=== PATIENT | male | born 1950 | race Caucasian/White ===

== ENCOUNTER 2022-05-31 13:10 | Inpatient (IN) | payer MEDICARE ==
[~2022-05-31 13:10] MED LIST: Iopamidol-370 76% 500 ML MDV (1 ML CHARGE) ONE
[2022-05-31] MEDS ORDERED: Ondansetron PF 4 MG/2 ML Vial ONE (15:37)
[2022-05-31] MEDS ORDERED: Morphine 4 MG/ML VIAL ONE (15:37)
[2022-05-31 16:28] LABS: Bilirubin Negative (Negative); Blood, Urine 2+ (Negative); Clarity Clear (Clear); Glucose, Urine (Dipstick) Normal (Negative); Ketone, Urine Greater than 150 mg/dL (Negative); Leukocyte 250 Leu/uL (Negative); Nitrite Negative (Negative); Protein, Urine (Dipstick) 70 mg/dL (Neg-Trace); Squamous Epithelial None Seen HPF (0-3); WBC/HPF 21-50 HPF (0-3); pH, Urine 5.5 (5.0-9.0)
[2022-05-31 16:31] LABS: Bacteria/HPF Rare-Few HPF (None Seen)
[2022-05-31 16:35] LABS: #Lymphocytes 0.7 thou/uL (1.20-3.40); #Monocytes 0.5 thou/uL (0.11-0.59); #Neutrophils 8.6 thou/uL (1.40-6.50); %Basophils 0.3 % (0.0-1.0); %Eosinophils 0.4 % (0.0-10.0); %Lymphocytes 6.8 % (21.0-51.0); %Monocytes 4.6 % (0.0-10.0); Hemoglobin 16.7 g/dL (14.0-18.0); Mean Corpuscular HGB CONC 33.7 g/dL (32.0-36.0); Mean Corpuscular Hemoglobin 31.4 pg (27.0-31.0); Mean Corpuscular Volume 93.3 fl (78.0-98.0); Mean Platelet Volume 8.1 fL (7.4-10.4); Platelet Count 196 10x3/uL (130-400); RBC Distribution Width 12.1 % (11.5-14.5); White Blood Cell (WBC) Count 9.8 10x3/uL (4.8-10.8)
[2022-05-31 17:01] LABS: ALT (SGPT) Less than 7 U/L (8-55); AST (SGOT) 13 U/L (5-34); Albumin 4.1 g/dL (3.4-4.8); Alkaline Phosphatase 61 U/L (40-110); Anion Gap 18 mmol/L (10-20); BUN (Urea Nitrogen) 15 mg/dL (8.4-25.7); Bilirubin, Total 0.5 mg/dL (0.2-1.2); Calc. Creatinine Clearance 0 mL/min (70-130); Calcium 9.7 mg/dL (7.8-10.44); Carbon Dioxide 22 mmol/L (23-31); Chloride 102 mmol/L (98-107); Estimated GFR 92; Glucose 118 mg/dL (83-110); Lipase 11 U/L (8-78); Potassium 4.1 mmol/L (3.5-5.1); Protein, Total 7.1 g/dL (5.8-8.1); Sodium 138 mmol/L (136-145)
[2022-05-31] MEDS ORDERED: Acetaminophen 650 MG Suppository PR PRN (19:44)
[2022-05-31] MEDS ORDERED: Ondansetron ODT 4 MG TAB PO PRN (19:44)
[2022-05-31] MEDS ORDERED: Acetaminophen 325 MG TAB PO PRN (19:44)
[2022-05-31] MEDS ORDERED: Ondansetron PF 4 MG/2 ML Vial IVP PRN (19:44)
[2022-05-31 21:26] VITALS: BMI 23.6
[2022-05-31] MEDS: Sodium Chloride 0.9% 1,000 ML IV SCH (21:28)
[2022-05-31] MEDS: Morphine 4 MG/ML VIAL SLOW IVP PRN (23:10)
[2022-06-01] MEDS: Morphine 4 MG/ML VIAL SLOW IVP PRN ×3 (02:50→21:24)
[2022-06-01] MEDS: Sodium Chloride 0.9% 1,000 ML IV SCH ×3 (05:55→23:53)
[2022-06-01 07:33] LABS: #Eosinphils 0.2 thou/uL (0.0-0.7); #Lymphocytes 1.7 thou/uL (1.20-3.40); #Monocytes 0.6 thou/uL (0.11-0.59); #Neutrophils 4.6 thou/uL (1.40-6.50); %Basophils 0.5 % (0.0-1.0); %Eosinophils 2.8 % (0.0-10.0); %Lymphocytes 23.2 % (21.0-51.0); %Monocytes 8.9 % (0.0-10.0); %Neutrophils 64.7 % (42.0-75.0); Hemoglobin 14.7 g/dL (14.0-18.0); Mean Corpuscular HGB CONC 32.2 g/dL (32.0-36.0); Mean Corpuscular Hemoglobin 30.5 pg (27.0-31.0); Mean Corpuscular Volume 94.7 fl (78.0-98.0); Mean Platelet Volume 8.1 fL (7.4-10.4); Platelet Count 181 10x3/uL (130-400); RBC Distribution Width 12.1 % (11.5-14.5); Red Blood Cell (RBC) Count 4.82 mill/uL (4.70-6.10); White Blood Cell (WBC) Count 7.1 10x3/uL (4.8-10.8)
[2022-06-01 08:01] LABS: Anion Gap 14 mmol/L (10-20); BUN (Urea Nitrogen) 16 mg/dL (8.4-25.7); Calc. Creatinine Clearance 91 mL/min (70-130); Calcium 8.5 mg/dL (7.8-10.44); Carbon Dioxide 23 mmol/L (23-31); Chloride 106 mmol/L (98-107); Estimated GFR 93; Glucose 92 mg/dL (83-110); Potassium 3.8 mmol/L (3.5-5.1); Sodium 139 mmol/L (136-145)
[2022-06-01] MEDS ORDERED: Pantoprazole 40 MG VIAL IVP SCH (15:15)
[2022-06-01] MEDS ORDERED: Phenol 118 ML BOT PO PRN (17:16)
[2022-06-02] MEDS ORDERED: Morphine 4 MG/ML VIAL SLOW IVP SCH (02:30)
[2022-06-02] MEDS ORDERED: Sevoflurane 250 ML INH ANEST BOTTLE ONE (03:10)
[2022-06-02 06:58] LABS: #Eosinphils 0.1 thou/uL (0.0-0.7); #Lymphocytes 1.2 thou/uL (1.20-3.40); #Monocytes 0.9 thou/uL (0.11-0.59); #Neutrophils 6.8 thou/uL (1.40-6.50); %Basophils 0.4 % (0.0-1.0); %Eosinophils 1.4 % (0.0-10.0); %Lymphocytes 12.9 % (21.0-51.0); %Monocytes 9.4 % (0.0-10.0); %Neutrophils 75.9 % (42.0-75.0); Hemoglobin 14.4 g/dL (14.0-18.0); Mean Corpuscular HGB CONC 32.8 g/dL (32.0-36.0); Mean Corpuscular Hemoglobin 31.1 pg (27.0-31.0); Platelet Count 178 10x3/uL (130-400); RBC Distribution Width 11.8 % (11.5-14.5); Red Blood Cell (RBC) Count 4.64 mill/uL (4.70-6.10)
[2022-06-02 07:19] LABS: ALT (SGPT) 27 U/L (8-55); AST (SGOT) 15 U/L (5-34); Albumin 3.5 g/dL (3.4-4.8); Alkaline Phosphatase 65 U/L (40-110); Anion Gap 15 mmol/L (10-20); BUN (Urea Nitrogen) 11 mg/dL (8.4-25.7); Bilirubin, Direct 0.4 mg/dL (0.1-0.3); Bilirubin, Total 0.8 mg/dL (0.2-1.2); Calc. Creatinine Clearance 98 mL/min (70-130); Calcium 8.3 mg/dL (7.8-10.44); Carbon Dioxide 23 mmol/L (23-31); Cardiac Risk 3.8 (Less than 4.5); Chloride 104 mmol/L (98-107); Cholesterol 124 mg/dl (< 200 Desired); Estimated GFR 95; Glucose 84 mg/dL (83-110); HDL Cholesterol 33 mg/dL (>60 Neg Risk); LDL Cholesterol, Calculated 76 mg/dL; Magnesium 1.6 mg/dL (1.6-2.6); Potassium 3.9 mmol/L (3.5-5.1); Protein, Total 5.9 g/dL (5.8-8.1); Sodium 138 mmol/L (136-145); Triglycerides 76 mg/dL (Less than 150)
[2022-06-02 07:31] LABS: Hemoglobin A1c 5.1 % (4.0-6.0)
[2022-06-02] MEDS ORDERED: fentaNYL PF 100 MCG/2 ML SYRINGE ONE (08:10)
[2022-06-02] MEDS ORDERED: Bupivacaine/Epinephrine 0.25% 30 ML VIAL ONE (08:25)
[2022-06-02] MEDS ORDERED: Midazolam HCl 2 mg/2 ml Vial ONE (08:49)
[2022-06-02] MEDS ORDERED: HYDROmorphone 0.5 MG/0.5 ML SYRINGE ONE (08:58)
[2022-06-02] MEDS ORDERED: PHENYLEPHRINE-NS 100 MCG/ML 10 ML SYRINGE ONE (09:04)
[2022-06-02] MEDS ORDERED: Phenylephrine 10 MG/ML VIAL ONE (09:05)
[2022-06-02] MEDS ORDERED: CEFAZOLIN 2 GM VIAL ONE (09:17)
[2022-06-02] MEDS ORDERED: Sodium Chloride 0.9% 100 ML ONE (09:17)
[2022-06-02] MEDS ORDERED: Ondansetron PF 4 MG/2 ML Vial ONE (09:26)
[2022-06-02] MEDS ORDERED: Glycopyrrolate 0.2 MG/ML 5 ML SYRINGE ONE (09:26)
[2022-06-02] MEDS ORDERED: Succinylcholine Chloride 100 MG/5 ML SYRINGE FS ONE (09:26)
[2022-06-02] MEDS ORDERED: NEOSTIGMINE 3 MG/3 ML SYR 3 MG/3 ML SYRINGE ONE (09:26)
[2022-06-02] MEDS ORDERED: Lidocaine 1% PF 5 ML VIAL ONE (09:26)
[2022-06-02] MEDS ORDERED: Rocuronium Bromide 10 MG/ML (10ML VIAL) ONE (09:26)
[2022-06-02] MEDS ORDERED: PROPOFOL 200 MG/20 ML VIAL ONE (09:26)
[2022-06-02] MEDS ORDERED: Dexamethasone 20 MG/5 ML VIAL ONE (09:26)
[2022-06-02] MEDS ORDERED: diphenhydrAMINE 50 MG/ML VIAL IM PRN (10:44)
[2022-06-02] MEDS ORDERED: diphenhydrAMINE 50 MG/ML VIAL IVP PRN (10:44)
[2022-06-02] MEDS ORDERED: Promethazine HCl 25 MG/ML VIAL IM PRN ×2 (10:44→10:45)
[2022-06-02] MEDS ORDERED: Ondansetron PF 4 MG/2 ML Vial IVP PRN (10:44)
[2022-06-02] MEDS ORDERED: Naloxone HCl 0.4 mg/ml Vial IV PRN (10:44)
[2022-06-02] MEDS ORDERED: FENTANYL 500 MCG/10 ML VIAL 2,000 MCG in Sodium Chloride 0.9% 60 ML IV PRN (10:44)
[2022-06-02] MEDS ORDERED: diphenhydrAMINE 25 MG CAP PO PRN (10:44)
[2022-06-02] MEDS ORDERED: Zolpidem Tartrate 5 MG TAB PO PRN (10:44)
[2022-06-02] MEDS ORDERED: Communication Order-Pharmacy FS SCH (10:45)
[2022-06-02] MEDS ORDERED: Ondansetron HCl/PF 4 MG/2 ML Vial IVP PRN (10:45)
[2022-06-02] MEDS ORDERED: Fentanyl 250 MCG/5 ML VIAL ONE (12:25)
[2022-06-02] MEDS ORDERED: Promethazine HCl 25 MG/ML VIAL ONE (12:25)
[2022-06-02] MEDS ORDERED: fentaNYL 50 mcg/mL 1 mL Vial ONE (15:25)
[2022-06-02] MEDS: Sodium Chloride 0.9% 1,000 ML IV SCH ×2 (17:04→21:07)
[2022-06-02] MEDS: Pantoprazole 40 MG VIAL IVP SCH (20:56)
[2022-06-03] MEDS: Sodium Chloride 0.9% 1,000 ML IV SCH ×3 (04:34→16:02)
[2022-06-03 04:47] LABS: #Lymphocytes 0.7 thou/uL (1.20-3.40); #Neutrophils 6.6 thou/uL (1.40-6.50); %Basophils 0.1 % (0.0-1.0); %Eosinophils 0.2 % (0.0-10.0); %Monocytes 11.7 % (0.0-10.0); Hemoglobin 15.6 g/dL (14.0-18.0); Mean Corpuscular HGB CONC 34.1 g/dL (32.0-36.0); Mean Corpuscular Hemoglobin 32.4 pg (27.0-31.0); Mean Platelet Volume 7.8 fL (7.4-10.4); Platelet Count 196 10x3/uL (130-400); Red Blood Cell (RBC) Count 4.81 mill/uL (4.70-6.10); White Blood Cell (WBC) Count 8.3 10x3/uL (4.8-10.8)
[2022-06-03 05:13] LABS: Anion Gap 14 mmol/L (10-20); BUN (Urea Nitrogen) 12 mg/dL (8.4-25.7); Calc. Creatinine Clearance 96 mL/min (70-130); Calcium 7.9 mg/dL (7.8-10.44); Carbon Dioxide 22 mmol/L (23-31); Chloride 105 mmol/L (98-107); Estimated GFR 94; Glucose 115 mg/dL (83-110); Magnesium 1.7 mg/dL (1.6-2.6); Potassium 4.6 mmol/L (3.5-5.1); Sodium 136 mmol/L (136-145)
[2022-06-03] MEDS: Pantoprazole 40 MG VIAL IVP SCH (10:04)
[2022-06-03] MEDS ORDERED: FENTANYL 500 MCG/10 ML VIAL 2,000 MCG in Sodium Chloride 0.9% 60 ML IV PRN (17:07)
[2022-06-03] MEDS: Ketorolac Tromethamine 30 MG/ML VIAL IVP PRN ×2 (17:33→23:50)
[2022-06-03] MEDS: Acetaminophen 500 MG TAB PO SCH (23:53)
[2022-06-04] MEDS: Sodium Chloride 0.9% 1,000 ML IV SCH ×3 (00:02→17:56)
[2022-06-04] MEDS: Acetaminophen 500 MG TAB PO SCH ×3 (05:58→19:43)
[2022-06-04 07:07] LABS: #Eosinphils 0.1 thou/uL (0.0-0.7); #Monocytes 0.8 thou/uL (0.11-0.59); #Neutrophils 4.3 thou/uL (1.40-6.50); %Basophils 0.5 % (0.0-1.0); %Eosinophils 1.1 % (0.0-10.0); %Lymphocytes 15.5 % (21.0-51.0); %Neutrophils 69.9 % (42.0-75.0); Mean Corpuscular HGB CONC 34.6 g/dL (32.0-36.0); Mean Corpuscular Hemoglobin 32.6 pg (27.0-31.0); Mean Corpuscular Volume 94.2 fl (78.0-98.0); Mean Platelet Volume 7.7 fL (7.4-10.4); Platelet Count 196 10x3/uL (130-400); RBC Distribution Width 11.7 % (11.5-14.5); White Blood Cell (WBC) Count 6.1 10x3/uL (4.8-10.8)
[2022-06-04 07:39] LABS: Anion Gap 14 mmol/L (10-20); BUN (Urea Nitrogen) 13 mg/dL (8.4-25.7); Calc. Creatinine Clearance 106 mL/min (70-130); Calcium 7.9 mg/dL (7.8-10.44); Carbon Dioxide 21 mmol/L (23-31); Chloride 104 mmol/L (98-107); Estimated GFR 97; Glucose 89 mg/dL (83-110); Magnesium 1.7 mg/dL (1.6-2.6); Potassium 3.8 mmol/L (3.5-5.1); Sodium 135 mmol/L (136-145)
[2022-06-04] MEDS: Pantoprazole 40 MG VIAL IVP SCH (08:41)
[2022-06-04] MEDS ORDERED: Benzocaine 20% Spray 60 ML CAN PO SCH (11:45)
[2022-06-04] MEDS: Ketorolac Tromethamine 30 MG/ML VIAL IVP PRN ×2 (12:03→17:39)
[2022-06-05] MEDS: Acetaminophen 500 MG TAB PO SCH ×5 (01:36→23:17)
[2022-06-05] MEDS: Sodium Chloride 0.9% 1,000 ML IV SCH ×2 (06:07→16:39)
[2022-06-05 06:20] LABS: #Eosinphils 0.2 thou/uL (0.0-0.7); #Lymphocytes 0.9 thou/uL (1.20-3.40); #Monocytes 0.6 thou/uL (0.11-0.59); #Neutrophils 4.3 thou/uL (1.40-6.50); %Eosinophils 2.5 % (0.0-10.0); %Lymphocytes 15.4 % (21.0-51.0); %Monocytes 9.6 % (0.0-10.0); %Neutrophils 72.4 % (42.0-75.0); Hemoglobin 14.2 g/dL (14.0-18.0); Mean Corpuscular Hemoglobin 31.8 pg (27.0-31.0); Mean Corpuscular Volume 93.5 fl (78.0-98.0); Mean Platelet Volume 7.9 fL (7.4-10.4); Platelet Count 220 10x3/uL (130-400); RBC Distribution Width 11.6 % (11.5-14.5); Red Blood Cell (RBC) Count 4.45 mill/uL (4.70-6.10)
[2022-06-05 06:42] LABS: Anion Gap 17 mmol/L (10-20); BUN (Urea Nitrogen) 13 mg/dL (8.4-25.7); Calc. Creatinine Clearance 105 mL/min (70-130); Calcium 8.1 mg/dL (7.8-10.44); Carbon Dioxide 17 mmol/L (23-31); Chloride 107 mmol/L (98-107); Estimated GFR 97; Glucose 81 mg/dL (83-110); Magnesium 1.9 mg/dL (1.6-2.6); Potassium 3.8 mmol/L (3.5-5.1); Sodium 137 mmol/L (136-145)
[2022-06-05] MEDS: Ketorolac Tromethamine 30 MG/ML VIAL IVP PRN ×2 (08:53→17:43)
[2022-06-05] MEDS: Pantoprazole 40 MG VIAL IVP SCH (08:55)
[2022-06-05] MEDS: Dextrose 5 % And 0.9 % NaCl 1,000 ML IV SCH ×2 (13:59→23:09)
[2022-06-06 06:04] LABS: #Eosinphils 0.2 thou/uL (0.0-0.7); #Lymphocytes 0.9 thou/uL (1.20-3.40); #Monocytes 0.7 thou/uL (0.11-0.59); #Neutrophils 4.8 thou/uL (1.40-6.50); %Basophils 0.3 % (0.0-1.0); %Monocytes 10.4 % (0.0-10.0); %Neutrophils 72.3 % (42.0-75.0); Mean Corpuscular HGB CONC 34.1 g/dL (32.0-36.0); Mean Corpuscular Hemoglobin 31.6 pg (27.0-31.0); Mean Corpuscular Volume 92.8 fl (78.0-98.0); Mean Platelet Volume 7.5 fL (7.4-10.4); Platelet Count 229 10x3/uL (130-400); RBC Distribution Width 11.5 % (11.5-14.5); Red Blood Cell (RBC) Count 4.43 mill/uL (4.70-6.10); White Blood Cell (WBC) Count 6.6 10x3/uL (4.8-10.8)
[2022-06-06] MEDS: Acetaminophen 500 MG TAB PO SCH ×4 (06:09→23:47)
[2022-06-06 06:29] LABS: Anion Gap 14 mmol/L (10-20); BUN (Urea Nitrogen) 11 mg/dL (8.4-25.7); Calc. Creatinine Clearance 109 mL/min (70-130); Calcium 8.1 mg/dL (7.8-10.44); Carbon Dioxide 21 mmol/L (23-31); Chloride 107 mmol/L (98-107); Estimated GFR 98; Glucose 127 mg/dL (83-110); Magnesium 1.7 mg/dL (1.6-2.6); Potassium 3.6 mmol/L (3.5-5.1); Sodium 138 mmol/L (136-145)
[2022-06-06] MEDS: Pantoprazole 40 MG VIAL IVP SCH (09:27)
[2022-06-06] MEDS: Dextrose 5 % And 0.9 % NaCl 1,000 ML IV SCH ×2 (12:54→23:42)
[2022-06-06] MEDS ORDERED: Simethicone Chewable 80 MG TAB PO SCH (21:30)
[2022-06-07 06:23] LABS: #Eosinphils 0.2 thou/uL (0.0-0.7); #Lymphocytes 1.2 thou/uL (1.20-3.40); #Monocytes 0.9 thou/uL (0.11-0.59); #Neutrophils 5.6 thou/uL (1.40-6.50); %Basophils 0.5 % (0.0-1.0); %Eosinophils 2.4 % (0.0-10.0); %Lymphocytes 15.5 % (21.0-51.0); %Neutrophils 70.6 % (42.0-75.0); Mean Corpuscular HGB CONC 33.8 g/dL (32.0-36.0); Mean Corpuscular Hemoglobin 31.3 pg (27.0-31.0); Mean Corpuscular Volume 92.4 fl (78.0-98.0); Mean Platelet Volume 7.8 fL (7.4-10.4); Platelet Count 252 10x3/uL (130-400); RBC Distribution Width 11.7 % (11.5-14.5); Red Blood Cell (RBC) Count 4.47 mill/uL (4.70-6.10); White Blood Cell (WBC) Count 7.9 10x3/uL (4.8-10.8)
[2022-06-07 06:38] LABS: Anion Gap 12 mmol/L (10-20); BUN (Urea Nitrogen) 9 mg/dL (8.4-25.7); Calc. Creatinine Clearance 105 mL/min (70-130); Calcium 8.4 mg/dL (7.8-10.44); Carbon Dioxide 25 mmol/L (23-31); Chloride 104 mmol/L (98-107); Estimated GFR 97; Glucose 132 mg/dL (83-110); Magnesium 1.6 mg/dL (1.6-2.6); Potassium 3.3 mmol/L (3.5-5.1); Sodium 138 mmol/L (136-145)
[2022-06-07] MEDS: Acetaminophen 500 MG TAB PO SCH ×4 (08:28→23:24)
[2022-06-07] MEDS: Pantoprazole 40 MG VIAL IVP SCH (08:29)
[2022-06-07] MEDS ORDERED: Potassium Chloride 40 MEQ, Magnesium Sulfate 4 GM in Sodium Chloride 0.9% 250 ML 250 ML IVPB SCH (09:00)
[2022-06-07] MEDS: Ketorolac Tromethamine 30 MG/ML VIAL IVP PRN ×2 (10:12→23:17)
[2022-06-08] MEDS: Acetaminophen 500 MG TAB PO SCH ×3 (05:03→17:10)
[2022-06-08 06:07] LABS: #Eosinphils 0.2 thou/uL (0.0-0.7); #Lymphocytes 1.1 thou/uL (1.20-3.40); #Monocytes 0.8 thou/uL (0.11-0.59); #Neutrophils 4.7 thou/uL (1.40-6.50); %Basophils 0.4 % (0.0-1.0); %Eosinophils 2.9 % (0.0-10.0); %Lymphocytes 16.1 % (21.0-51.0); %Monocytes 11.9 % (0.0-10.0); %Neutrophils 68.7 % (42.0-75.0); Hemoglobin 13.9 g/dL (14.0-18.0); Mean Corpuscular HGB CONC 34.2 g/dL (32.0-36.0); Mean Corpuscular Hemoglobin 31.9 pg (27.0-31.0); Mean Corpuscular Volume 93.2 fl (78.0-98.0); Mean Platelet Volume 7.7 fL (7.4-10.4); Platelet Count 242 10x3/uL (130-400); RBC Distribution Width 11.8 % (11.5-14.5); Red Blood Cell (RBC) Count 4.37 mill/uL (4.70-6.10); White Blood Cell (WBC) Count 6.8 10x3/uL (4.8-10.8)
[2022-06-08 06:25] LABS: Anion Gap 11 mmol/L (10-20); BUN (Urea Nitrogen) 13 mg/dL (8.4-25.7); Calc. Creatinine Clearance 102 mL/min (70-130); Calcium 8.2 mg/dL (7.8-10.44); Carbon Dioxide 26 mmol/L (23-31); Chloride 104 mmol/L (98-107); Estimated GFR 96; Glucose 115 mg/dL (83-110); Potassium 3.6 mmol/L (3.5-5.1); Sodium 137 mmol/L (136-145)
[2022-06-08] MEDS: Pantoprazole 40 MG VIAL IVP SCH (08:11)
[2022-06-08] MEDS ORDERED: Iopamidol 370 76% 100 ML VIAL ONE (10:30)
[2022-06-08] MEDS: traMADol HCl 50 MG TAB PO SCH ×3 (10:37→20:33)
[2022-06-09] MEDS: Acetaminophen 500 MG TAB PO SCH ×4 (03:23→17:21)
[2022-06-09] MEDS: traMADol HCl 50 MG TAB PO SCH ×4 (04:26→22:14)
[2022-06-09 08:29] LABS: Anion Gap 15 mmol/L (10-20); BUN (Urea Nitrogen) 16 mg/dL (8.4-25.7); Calc. Creatinine Clearance 94 mL/min (70-130); Calcium 8.6 mg/dL (7.8-10.44); Carbon Dioxide 26 mmol/L (23-31); Chloride 99 mmol/L (98-107); Estimated GFR 94; Glucose 106 mg/dL (83-110); Magnesium 1.9 mg/dL (1.6-2.6); Phosphorus 3.9 mg/dL (2.3-4.7); Potassium 3.7 mmol/L (3.5-5.1); Sodium 136 mmol/L (136-145)
[2022-06-09] MEDS: Pantoprazole 40 MG VIAL IVP SCH (08:32)
[2022-06-09] MEDS: Metamucil PACK PO SCH ×2 (14:47→22:15)
[2022-06-09] MEDS: Calcium Carbonate 500 MG ChewTAB PO PRN (22:14)
[2022-06-10] MEDS: Acetaminophen 500 MG TAB PO SCH ×5 (00:40→23:03)
[2022-06-10] MEDS: traMADol HCl 50 MG TAB PO SCH ×4 (03:36→23:03)
[2022-06-10] MEDS: Calcium Carbonate 500 MG ChewTAB PO PRN (03:41)
[2022-06-10 07:12] LABS: Anion Gap 14 mmol/L (10-20); BUN (Urea Nitrogen) 15 mg/dL (8.4-25.7); Calc. Creatinine Clearance 99 mL/min (70-130); Calcium 8.4 mg/dL (7.8-10.44); Carbon Dioxide 26 mmol/L (23-31); Chloride 97 mmol/L (98-107); Estimated GFR 95; Glucose 100 mg/dL (83-110); Potassium 3.3 mmol/L (3.5-5.1); Sodium 134 mmol/L (136-145)
[2022-06-10] MEDS ORDERED: Diphenoxylate HCl/Atropine Tablet PO PRN (08:13)
[2022-06-10] MEDS ORDERED: Potassium Phosphate 30 MMOL in Sodium Chloride 0.9% 250 ML 250 ML IVPB SCH (09:00)
[2022-06-10] MEDS ORDERED: Loperamide HCl 2 MG CAP PO SCH (09:00)
[2022-06-10] MEDS: Metamucil PACK PO SCH ×3 (09:00→20:06)
[2022-06-10] MEDS: Diphenoxylate HCl/Atropine Tablet PO SCH ×3 (11:08→20:05)
[2022-06-10] MEDS: traMADol HCl 50 MG TAB PO PRN (23:02)
[2022-06-11] MEDS: traMADol HCl 50 MG TAB PO PRN (05:39)
[2022-06-11 05:41] LABS: #Basophils 0.1 thou/uL (0.0-0.2); #Eosinphils 0.2 thou/uL (0.0-0.7); #Lymphocytes 1.4 thou/uL (1.20-3.40); #Monocytes 0.6 thou/uL (0.11-0.59); #Neutrophils 4.1 thou/uL (1.40-6.50); %Basophils 0.8 % (0.0-1.0); %Eosinophils 3.2 % (0.0-10.0); %Lymphocytes 22.1 % (21.0-51.0); %Neutrophils 63.9 % (42.0-75.0); Mean Corpuscular HGB CONC 31.7 g/dL (32.0-36.0); Mean Corpuscular Hemoglobin 29.9 pg (27.0-31.0); Mean Corpuscular Volume 94.3 fl (78.0-98.0); Mean Platelet Volume 7.7 fL (7.4-10.4); Platelet Count 270 10x3/uL (130-400); RBC Distribution Width 11.7 % (11.5-14.5); Red Blood Cell (RBC) Count 4.67 mill/uL (4.70-6.10); White Blood Cell (WBC) Count 6.4 10x3/uL (4.8-10.8)
[2022-06-11] MEDS: traMADol HCl 50 MG TAB PO SCH ×2 (05:41→08:45)
[2022-06-11] MEDS: Acetaminophen 500 MG TAB PO SCH ×2 (05:42→08:45)
[2022-06-11 05:56] LABS: Anion Gap 11 mmol/L (10-20); BUN (Urea Nitrogen) 13 mg/dL (8.4-25.7); Calc. Creatinine Clearance 84 mL/min (70-130); Calcium 8.9 mg/dL (7.8-10.44); Carbon Dioxide 32 mmol/L (23-31); Chloride 98 mmol/L (98-107); Estimated GFR 90; Glucose 112 mg/dL (83-110); Potassium 4.1 mmol/L (3.5-5.1); Sodium 137 mmol/L (136-145)
[2022-06-11] MEDS: Metamucil PACK PO SCH (08:46)
[2022-06-11] MEDS: Diphenoxylate HCl/Atropine Tablet PO SCH (08:46)
[2022-06-11 12:06] VITALS: BP 111/72; TEMP 97.7
== END 2022-06-11 13:15 | disposition hospice, inpatient (51) | DRG 327 ==
LOC: ERS 13:10 → T4-A 19:40 → SJJU 06-02 16:01
PROVIDERS: ADMIT Hospitalist; ATTEND Hospitalist
PROC: 0D9670Z Drainage of Stomach with Drainage Device, Via Natural or Artificial Opening (ICD-10-PCS; 2022-05-31)
PROC: 0DBU0ZZ Excision of Omentum, Open Approach (ICD-10-PCS; principal; 2022-06-02)
PROC: 0DJ04ZZ Inspection of Upper Intestinal Tract, Percutaneous Endoscopic Approach (ICD-10-PCS; 2022-06-02)
PROC: 0DJU4ZZ Inspection of Omentum, Percutaneous Endoscopic Approach (ICD-10-PCS; 2022-06-02)
PROC: 0D1B0Z4 Bypass Ileum to Cutaneous, Open Approach (ICD-10-PCS; 2022-06-02)
DX: C48.2 Malignant neoplasm of peritoneum, unspecified (principal); E87.1 Hypo-osmolality and hyponatremia; R18.8 Other ascites; Z66 Do not resuscitate; Z51.5 Encounter for palliative care; E87.6 Hypokalemia; N28.1 Cyst of kidney, acquired; K57.30 Diverticulosis of large intestine without perforation or abscess without bleeding; R31.29 Other microscopic hematuria; E86.0 Dehydration; R63.0 Anorexia; Z53.31 Laparoscopic surgical procedure converted to open procedure; Z79.82 Long term (current) use of aspirin
CPT/HCPCS: 36415; 36416; 71046; 71260; 74018; 74177; 80048; 80053; 80061; 80076; 81003; 81015; 82105; 82378; 83036; 83690; 83735; 83930; 83935; 84100; 84153; 84300; 84443; 84484; 85025; 86301; 86850; 86900; 86901; 87086; 88307; 88341; 88342; 93005; 96374; 96375; 97139; C9113; J1100; J1170; J1650; J1885; J2250; J2270; J2370; J2405; J2550; J2704; J3010; J3475; J3480; J3490; J7042; J7050; Q9967

== ENCOUNTER 2022-09-06 18:24 | Inpatient (IN) | payer MEDICARE ==
[2022-09-06 19:37] LABS: Hematocrit 36.2 % (42.0-52.0); Manual Diff?? YES; Mean Corpuscular HGB CONC 33.1 g/dL (32.0-36.0); Mean Corpuscular Hemoglobin 31.7 pg (27.0-31.0); Mean Corpuscular Volume 95.5 fl (78.0-98.0); Mean Platelet Volume 11.1 fL (7.4-10.4); RBC Distribution Width 19.3 % (11.5-14.5); Red Blood Cell (RBC) Count 3.79 mill/uL (4.70-6.10); White Blood Cell (WBC) Count 4.2 10x3/uL (4.8-10.8)
[2022-09-06] MEDS ORDERED: Morphine 4 MG/ML VIAL ONE (19:52)
[2022-09-06] MEDS ORDERED: Ondansetron PF 4 MG/2 ML Vial ONE (19:56)
[2022-09-06] MEDS ORDERED: Morphine 2 MG/ML VIAL ONE ×3 (19:56→23:59)
[2022-09-06 19:58] LABS: ALT (SGPT) 13 U/L (8-55); AST (SGOT) 22 U/L (5-34); Albumin 3.4 g/dL (3.4-4.8); Alkaline Phosphatase 109 U/L (40-110); Anion Gap 13 mmol/L (10-20); BUN (Urea Nitrogen) 13 mg/dL (8.4-25.7); Bilirubin, Total 0.7 mg/dL (0.2-1.2); Calc. Creatinine Clearance 0 mL/min (70-130); Calcium 8.5 mg/dL (7.8-10.44); Carbon Dioxide 23 mmol/L (23-31); Chloride 106 mmol/L (98-107); Estimated GFR 98; Globulin 2.7 g/dL (2.4-3.5); Glucose 109 mg/dL (83-110); Lipase 7 U/L (8-78); Potassium 4.1 mmol/L (3.5-5.1); Protein, Total 6.1 g/dL (5.8-8.1); Sodium 138 mmol/L (136-145)
[2022-09-06 20:13] LABS: Platelet Count 81 10x3/uL (130-400)
[2022-09-06 20:14] LABS: Delete Auto Diff?? YES
[2022-09-06 20:38] LABS: Anisocytosis SLIGHT = 6-15 cells HPF (0-5); Band 16 % (5-11); CellaVision Operator ID LAB.KB; Dohle Bodies SLIGHT; Eosinophils 1 % (0-10); Lymphocytes 19 % (21-51); Monocytes 18 % (0-10); Myelocyte 1 % (0-0); Neutrophil 44 % (42-75); Platelet Adequacy Comment Platelets Decreased; Polychromasia SLIGHT = 2-3 cells HPF (0-2); Total Cell Count 101; Toxic Granulation SLIGHT
[2022-09-07] MEDS ORDERED: Ondansetron ODT 4 MG TAB PO PRN (00:52)
[2022-09-07] MEDS ORDERED: Acetaminophen 325 MG TAB PO PRN (00:52)
[2022-09-07] MEDS ORDERED: Acetaminophen 650 MG Suppository PR PRN (00:52)
[2022-09-07] MEDS ORDERED: Ondansetron PF 4 MG/2 ML Vial IVP PRN (00:52)
[2022-09-07] MEDS: Morphine 4 MG/ML VIAL SLOW IVP PRN ×5 (02:06→22:45)
[2022-09-07] MEDS: Lactated Ringer's 1,000 ML IV SCH ×4 (02:07→22:44)
[2022-09-07 02:23] VITALS: BMI 21.9
[2022-09-07 06:21] LABS: Hematocrit 34.6 % (42.0-52.0); Hemoglobin 11.5 g/dL (14.0-18.0); Manual Diff?? YES; Mean Corpuscular HGB CONC 33.2 g/dL (32.0-36.0); Mean Corpuscular Hemoglobin 31.9 pg (27.0-31.0); Mean Corpuscular Volume 95.8 fl (78.0-98.0); RBC Distribution Width 19.7 % (11.5-14.5); Red Blood Cell (RBC) Count 3.61 mill/uL (4.70-6.10); White Blood Cell (WBC) Count 4.2 10x3/uL (4.8-10.8)
[2022-09-07 06:37] LABS: Delete Auto Diff?? YES; Platelet Count 87 10x3/uL (130-400)
[2022-09-07 06:43] LABS: Anion Gap 9 mmol/L (10-20); BUN (Urea Nitrogen) 12 mg/dL (8.4-25.7); Calc. Creatinine Clearance 103 mL/min (70-130); Calcium 8.8 mg/dL (7.8-10.44); Carbon Dioxide 26 mmol/L (23-31); Chloride 107 mmol/L (98-107); Estimated GFR 98; Glucose 96 mg/dL (83-110); Potassium 3.8 mmol/L (3.5-5.1); Sodium 138 mmol/L (136-145)
[2022-09-07 07:29] LABS: Band 19 % (5-11); CellaVision Operator ID LAB.GE; Large Platelets 2.9 % (0-5); Lymphocytes 26 % (21-51); Monocytes 17 % (0-10); Neutrophil 32 % (42-75); Platelet Adequacy Comment Platelets Decreased; RBC Morphology Within Normal Limits; Reactive Lymphocytes 4 % (0-10); Total Cell Count 102
[2022-09-08 07:32] LABS: Anion Gap 9 mmol/L (10-20); BUN (Urea Nitrogen) 7 mg/dL (8.4-25.7); Calc. Creatinine Clearance 94 mL/min (70-130); Calcium 8.6 mg/dL (7.8-10.44); Carbon Dioxide 27 mmol/L (23-31); Chloride 106 mmol/L (98-107); Estimated GFR 96; Glucose 125 mg/dL (83-110); Potassium 3.8 mmol/L (3.5-5.1); Sodium 138 mmol/L (136-145)
[2022-09-08] MEDS: Lactated Ringer's 1,000 ML IV SCH (08:05)
[2022-09-08 08:54] VITALS: TEMP 98
[2022-09-08] MEDS: Morphine 4 MG/ML VIAL SLOW IVP PRN (10:40)
[2022-09-08 12:29] VITALS: BP 133/79
== END 2022-09-08 12:55 | disposition home or self-care (01) | DRG 375 ==
LOC: ERS 18:24 → SJJU 23:50
PROVIDERS: ADMIT Student in an Organized Health Care Education/Training Program; ATTEND Internal Medicine
DX: C78.6 Secondary malignant neoplasm of retroperitoneum and peritoneum (principal); K56.1 Intussusception; Z90.49 Acquired absence of other specified parts of digestive tract; Z93.3 Colostomy status; Z79.899 Other long term (current) drug therapy
CPT/HCPCS: 74177; 80048; 80053; 83605; 83690; 85025; 96374; 96375; 96376; J1642; J1650; J2270; J2272; J2405; J7120; Q9967

== ENCOUNTER 2022-09-11 13:39 | Outpatient (CLI) | payer MEDICARE | END 2022-09-11 13:40 | disposition home or self-care (01) | LOC: BICCT 13:39 | PROVIDERS: ATTEND Internal Medicine | DX: C18.9 Malignant neoplasm of colon, unspecified (principal); R91.1 Solitary pulmonary nodule; K66.8 Other specified disorders of peritoneum | CPT/HCPCS: 71260; 74177; Q9967 ==

== ENCOUNTER 2022-10-08 08:02 | Inpatient (IN) | payer MEDICARE ==
[2022-10-08] MEDS ORDERED: fentaNYL 50 mcg/mL 1 mL Vial ONE ×2 (08:55→09:39)
[2022-10-08 09:21] LABS: Hematocrit 39.8 % (42.0-52.0); Hemoglobin 13.3 g/dL (14.0-18.0); Mean Corpuscular HGB CONC 33.4 g/dL (32.0-36.0); Mean Corpuscular Hemoglobin 33.8 pg (27.0-31.0); Mean Corpuscular Volume 101.3 fl (78.0-98.0); Mean Platelet Volume 10.8 fL (7.4-10.4); RBC Distribution Width 19.1 % (11.5-14.5); Red Blood Cell (RBC) Count 3.93 mill/uL (4.70-6.10); White Blood Cell (WBC) Count 35.2 10x3/uL (4.8-10.8)
[2022-10-08 09:28] LABS: Delete Auto Diff?? YES; Manual Diff?? YES
[2022-10-08 09:40] LABS: ALT (SGPT) 10 U/L (8-55); AST (SGOT) 15 U/L (5-34); Albumin 3.4 g/dL (3.4-4.8); Alkaline Phosphatase 105 U/L (40-110); Anion Gap 13 mmol/L (10-20); BUN (Urea Nitrogen) 13 mg/dL (8.4-25.7); Bilirubin, Total 0.7 mg/dL (0.2-1.2); Calc. Creatinine Clearance 0 mL/min (70-130); Carbon Dioxide 22 mmol/L (23-31); Chloride 102 mmol/L (98-107); Estimated GFR 97; Globulin 2.5 g/dL (2.4-3.5); Glucose 117 mg/dL (83-110); Lipase Less than 4 U/L (8-78); Protein, Total 5.9 g/dL (5.8-8.1); Sodium 133 mmol/L (136-145)
[2022-10-08 10:00] LABS: Anisocytosis MODERATE=16-30 cells HPF (0-5); Band 5 % (5-11); Burr Cells SLIGHT = 2-5 cells HPF (0-1); CellaVision Operator ID LAB.NR; Eosinophils 1 % (0-10); Lymphocytes 1 % (21-51); Macrocytosis MODERATE=16-30 cells HPF (0-5); Neutrophil 93 % (42-75); Ovalocytes SLIGHT = 2-5 cells HPF (0-1); Platelet Adequacy Comment Platelets Decreased; Polychromasia SLIGHT = 2-3 cells HPF (0-2); Total Cell Count 101
[2022-10-08 10:01] LABS: Platelet Count 72 10x3/uL (130-400)
[2022-10-08] MEDS ORDERED: Iopamidol-370 76% 500 ML MDV (1 ML CHARGE) ONE (11:48)
[2022-10-08] MEDS ORDERED: Sodium Chloride 0.9% 1,000 ML IV SCH (16:00)
[2022-10-08] MEDS ORDERED: Ondansetron PF 4 MG/2 ML Vial IVP PRN (16:12)
[2022-10-08] MEDS ORDERED: Morphine 2 MG/ML VIAL SLOW IVP PRN (16:12)
[2022-10-08] MEDS ORDERED: Morphine 4 MG/ML VIAL SLOW IVP PRN (16:27)
[2022-10-08] MEDS ORDERED: Ketorolac Tromethamine 30 MG/ML VIAL IVP PRN (16:29)
[2022-10-08] MEDS ORDERED: Ketorolac Tromethamine 30 MG/ML VIAL IVP SCH (16:30)
[2022-10-08] MEDS: Sodium Chloride 0.9% 1,000 ML IV SCH (16:34)
[2022-10-08] MEDS: Acetaminophen 500 MG TAB PO SCH ×2 (17:33→22:56)
[2022-10-08 19:10] VITALS: BMI 22.4
[2022-10-08] MEDS: Famotidine/PF 20 mg/2ml Vial SLOW IVP SCH (22:55)
[2022-10-09] MEDS: Sodium Chloride 0.9% 1,000 ML IV SCH ×2 (02:19→10:37)
[2022-10-09 05:25] LABS: Hematocrit 34.2 % (42.0-52.0); Mean Corpuscular HGB CONC 32.2 g/dL (32.0-36.0); Mean Corpuscular Hemoglobin 33.6 pg (27.0-31.0); Mean Platelet Volume 11.3 fL (7.4-10.4); RBC Distribution Width 19.1 % (11.5-14.5); Red Blood Cell (RBC) Count 3.27 mill/uL (4.70-6.10); White Blood Cell (WBC) Count 16.7 10x3/uL (4.8-10.8)
[2022-10-09 05:27] LABS: Platelet Count 67 10x3/uL (130-400)
[2022-10-09 05:28] LABS: Delete Auto Diff?? YES; Manual Diff?? YES; Mean Corpuscular Volume 104.6 fl (78.0-98.0)
[2022-10-09] MEDS: Acetaminophen 500 MG TAB PO SCH ×4 (05:28→22:49)
[2022-10-09 05:39] LABS: INR-International Normal Ratio 1.1; Prothrombin Time 14.9 sec (12.0-14.7)
[2022-10-09 05:56] LABS: Band 17 % (5-11); CellaVision Operator ID LAB.CLH1; Eosinophils 1 % (0-10); Hypochromia SLIGHT = 6-15 cells HPF (0-5); Lymphocytes 6 % (21-51); Macrocytosis SLIGHT = 6-15 cells HPF (0-5); Monocytes 2 % (0-10); Neutrophil 73 % (42-75); Platelet Adequacy Comment Platelets Decreased; Polychromasia SLIGHT = 2-3 cells HPF (0-2); Total Cell Count 100
[2022-10-09 06:02] LABS: Anion Gap 10 mmol/L (10-20); BUN (Urea Nitrogen) 15 mg/dL (8.4-25.7); Calc. Creatinine Clearance 87 mL/min (70-130); Calcium 8.5 mg/dL (7.8-10.44); Carbon Dioxide 26 mmol/L (23-31); Chloride 103 mmol/L (98-107); Estimated GFR 94; Glucose 98 mg/dL (83-110); Sodium 134 mmol/L (136-145)
[2022-10-09] MEDS: Famotidine/PF 20 mg/2ml Vial SLOW IVP SCH (08:47)
[2022-10-09] MEDS ORDERED: Scopolamine 1.5 mg/72 hour Patch TD SCH (13:30)
[2022-10-09] MEDS: traMADol HCl 50 MG TAB PO PRN ×3 (15:47→20:13)
[2022-10-10] MEDS: traMADol HCl 50 MG TAB PO PRN ×2 (01:05→09:21)
[2022-10-10] MEDS: Acetaminophen 500 MG TAB PO SCH ×2 (04:52→09:15)
[2022-10-10 11:55] VITALS: BP 119/68; TEMP 98.2
== END 2022-10-10 13:49 | disposition home or self-care (01) | DRG 375 ==
LOC: ERS 08:02 → SURG A 13:51 → OBSVTOIN 10-10 12:41
PROVIDERS: ADMIT Specialist; ATTEND Specialist
DX: C78.6 Secondary malignant neoplasm of retroperitoneum and peritoneum (principal); K56.609 Unspecified intestinal obstruction, unspecified as to partial versus complete obstruction; K56.7 Ileus, unspecified; K94.13 Enterostomy malfunction; G89.3 Neoplasm related pain (acute) (chronic); Z79.899 Other long term (current) drug therapy; R26.81 Unsteadiness on feet; Z90.49 Acquired absence of other specified parts of digestive tract; Z85.038 Personal history of other malignant neoplasm of large intestine; Y83.8 Other surgical procedures as the cause of abnormal reaction of the patient, or of later complication, without mention of misadventure at the time of the procedure
CPT/HCPCS: 36415; 74022; 74177; 80048; 80053; 83605; 83690; 85025; 85610; 85730; 96361; 96374; 96376; J1885; J2405; J3010; J7050; Q9967; S0028

== ENCOUNTER 2022-10-13 13:44 | Inpatient (IN) | payer MEDICARE ==
[~2022-10-13 13:44] MED LIST changes: +ISOVUE-370 76%-LOCM 500 ML MDV (1 ML CHARGE) ONE; -Iopamidol-370 76% 500 ML MDV (1 ML CHARGE) ONE
[2022-10-13] MEDS ORDERED: Morphine 4 MG/ML VIAL ONE ×2 (14:24→15:48)
[2022-10-13] MEDS ORDERED: Ondansetron PF 4 MG/2 ML Vial ONE (14:25)
[2022-10-13 15:02] LABS: Hematocrit 37.1 % (42.0-52.0); Hemoglobin 12.4 g/dL (14.0-18.0); Mean Corpuscular HGB CONC 33.4 g/dL (32.0-36.0); Mean Corpuscular Hemoglobin 34.3 pg (27.0-31.0); Mean Corpuscular Volume 102.5 fl (78.0-98.0); Mean Platelet Volume 9.6 fL (7.4-10.4); RBC Distribution Width 18.4 % (11.5-14.5); Red Blood Cell (RBC) Count 3.62 mill/uL (4.70-6.10); White Blood Cell (WBC) Count 5.4 10x3/uL (4.8-10.8)
[2022-10-13 15:09] LABS: Delete Auto Diff?? YES; Manual Diff?? YES; Platelet Count 70 10x3/uL (130-400)
[2022-10-13 15:21] LABS: ALT (SGPT) 11 U/L (8-55); AST (SGOT) 18 U/L (5-34); Albumin 3.3 g/dL (3.4-4.8); Alkaline Phosphatase 101 U/L (40-110); Anion Gap 11 mmol/L (10-20); BUN (Urea Nitrogen) 10 mg/dL (8.4-25.7); Bilirubin, Total 0.6 mg/dL (0.2-1.2); Calc. Creatinine Clearance 0 mL/min (70-130); Calcium 8.9 mg/dL (7.8-10.44); Carbon Dioxide 26 mmol/L (23-31); Chloride 99 mmol/L (98-107); Estimated GFR 98; Globulin 2.5 g/dL (2.4-3.5); Glucose 104 mg/dL (83-110); Lipase 4 U/L (8-78); Potassium 3.8 mmol/L (3.5-5.1); Protein, Total 5.8 g/dL (5.8-8.1); Sodium 132 mmol/L (136-145)
[2022-10-13 15:28] LABS: Band 24 % (5-11); Burr Cells SLIGHT = 2-5 cells HPF (0-1); CellaVision Operator ID LAB.KB; Dohle Bodies SLIGHT; Eosinophils 1 % (0-10); Large Platelets 0.9 % (0-5); Lymphocytes 9 % (21-51); Monocytes 12 % (0-10); Neutrophil 54 % (42-75); Platelet Adequacy Comment Platelets Decreased; Polychromasia SLIGHT = 2-3 cells HPF (0-2); Target Cells SLIGHT = 2-5 cells HPF (0-1); Total Cell Count 117; Toxic Granulation SLIGHT
[2022-10-13] MEDS ORDERED: HYDROmorphone 0.5 MG/0.5 ML SYRINGE ONE (17:08)
[2022-10-13] MEDS ORDERED: Ondansetron PF 4 MG/2 ML Vial IVP PRN (18:21)
[2022-10-13] MEDS ORDERED: Acetaminophen 650 MG Suppository PR PRN (18:21)
[2022-10-13] MEDS ORDERED: Fentanyl 100 MCG/2 ML VIAL SLOW IVP PRN (18:26)
[2022-10-13] MEDS ORDERED: Temazepam 15 MG CAP PO PRN (18:28)
[2022-10-13] MEDS ORDERED: Scopolamine 1.5 mg/72 hour Patch TD PRN (18:30)
[2022-10-13] MEDS ORDERED: Potassium Chloride 20 MEQ TAB ONE (18:54)
[2022-10-13] MEDS ORDERED: Sodium Chloride 0.9% 1,000 ML IV SCH (19:30)
[2022-10-13] MEDS ORDERED: Pantoprazole 40 MG VIAL IVP SCH (21:00)
[2022-10-13] MEDS ORDERED: Non-Formulary Item 1 EACH (Omeprazole Magnesium [Omeprazole Magnesium] 20 MG Tablet.Dr) PO SCH (21:00)
[2022-10-13] MEDS: Dextrose 5 % And 0.9 % NaCl 1,000 ML IV SCH (23:54)
[2022-10-14] MEDS ORDERED: fentaNYL 50 mcg/mL 1 mL Vial SLOW IVP PRN (04:39)
[2022-10-14 06:38] LABS: #Neutrophils 5.1 thou/uL (1.40-6.50); %Basophils 0.3 % (0.0-1.0); %Lymphocytes 9.2 % (21.0-51.0); %Monocytes 14.3 % (0.0-10.0); Hematocrit 35.7 % (42.0-52.0); Mean Corpuscular HGB CONC 33.6 g/dL (32.0-36.0); Mean Corpuscular Volume 101.1 fl (78.0-98.0); Mean Platelet Volume 10.6 fL (7.4-10.4); RBC Distribution Width 18.6 % (11.5-14.5); Red Blood Cell (RBC) Count 3.53 mill/uL (4.70-6.10); White Blood Cell (WBC) Count 6.8 10x3/uL (4.8-10.8)
[2022-10-14 07:02] LABS: ALT (SGPT) 10 U/L (8-55); AST (SGOT) 17 U/L (5-34); Albumin 3.2 g/dL (3.4-4.8); Alkaline Phosphatase 99 U/L (40-110); Anion Gap 9 mmol/L (10-20); BUN (Urea Nitrogen) 12 mg/dL (8.4-25.7); Bilirubin, Total 0.5 mg/dL (0.2-1.2); Calc. Creatinine Clearance 85 mL/min (70-130); Calcium 8.7 mg/dL (7.8-10.44); Carbon Dioxide 29 mmol/L (23-31); Chloride 103 mmol/L (98-107); Estimated GFR 94; Globulin 2.4 g/dL (2.4-3.5); Glucose 134 mg/dL (83-110); Potassium 3.7 mmol/L (3.5-5.1); Protein, Total 5.6 g/dL (5.8-8.1); Sodium 137 mmol/L (136-145)
[2022-10-14 07:42] LABS: Platelet Count 69 10x3/uL (130-400)
[2022-10-14] MEDS: Pantoprazole 40 MG VIAL IVP SCH (09:28)
[2022-10-14] MEDS: Dextrose 5 % And 0.9 % NaCl 1,000 ML IV SCH (09:49)
[2022-10-14] MEDS: fentaNYL 50 mcg/hour Patch TD SCH (12:54)
[2022-10-14] MEDS: Morphine 2 MG/ML VIAL SLOW IVP PRN (19:07)
[2022-10-14] MEDS ORDERED: Acetaminophen 325 MG TAB PO PRN (23:41)
[2022-10-15] MEDS: Morphine 2 MG/ML VIAL SLOW IVP PRN ×2 (03:05→12:07)
[2022-10-15] MEDS: Dextrose 5 % And 0.9 % NaCl 1,000 ML IV SCH (03:06)
[2022-10-15] MEDS: Pantoprazole 40 MG VIAL IVP SCH (08:45)
[2022-10-15 12:01] VITALS: BP 106/53; TEMP 98.2
[2022-10-15] MEDS: fentaNYL 50 mcg/hour Patch TD SCH (12:04)
[2022-10-17] MEDS ORDERED: fentaNYL 50 mcg/hour Patch TD SCH (09:00)
== END 2022-10-15 12:45 | disposition home or self-care (01) | DRG 375 ==
LOC: ERS 13:44 → SURG B 17:44 → OBSVTOIN 10-14 14:09
PROVIDERS: ADMIT Hospitalist; ATTEND Internal Medicine
PROC: 0D9670Z Drainage of Stomach with Drainage Device, Via Natural or Artificial Opening (ICD-10-PCS; principal; 2022-10-14)
DX: C78.6 Secondary malignant neoplasm of retroperitoneum and peritoneum (principal); K56.690 Other partial intestinal obstruction; D69.6 Thrombocytopenia, unspecified; Z66 Do not resuscitate; R53.0 Neoplastic (malignant) related fatigue; D69.59 Other secondary thrombocytopenia; T45.1X5A Adverse effect of antineoplastic and immunosuppressive drugs, initial encounter; D63.0 Anemia in neoplastic disease; Z98.890 Other specified postprocedural states; Z93.2 Ileostomy status; Z79.899 Other long term (current) drug therapy; Z90.49 Acquired absence of other specified parts of digestive tract
CPT/HCPCS: 36415; 36416; 74018; 74177; 80053; 83690; 85025; 96361; 96374; 96375; 96376; C9113; G0378; J1170; J1642; J2270; J2272; J2405; J3010; J7042; J7050; Q9966